=== PATIENT | female | born 1955 | race Caucasian/White ===

== ENCOUNTER 2024-08-25 10:20 | Emergency (ER) | payer MEDICARE, MEDICAID, SELFPAY ==
[2024-08-25 10:25] VITALS: BP 147/80; PULSE 73; TEMP 37; O2SAT 95; BMI 27.1
--- NOTE | 2024-08-25 10:35 | ED.GENADUL1 ---
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 Yesterday as an outpatient at [facility] she had a new lead placed on her pacemaker. When she took off the bulky dressing today she noted some blood presents under the clear dressing. She has been off of her blood thinner for several days. She does not feel dizzy and does not have chest pain or shortness of breath. Related Data Home Medications ?Medication ?Instructions ?Recorded ?Confirmed amiodarone 200 mg tablet 200 mg PO DAILY 08/25/24 08/25/24 apixaban 5 mg tablet (Eliquis) 5 mg PO BID 08/25/24 08/25/24 diltiazem HCl 180 mg 180 mg PO DAILY 08/25/24 08/25/24 capsule,extended release 24 hr docusate sodium 100 mg capsule 100 mg PO BID 08/25/24 08/25/24 doxycycline monohydrate 100 mg 100 mg PO BID 08/25/24 08/25/24 capsule lisinopril 10 mg tablet 10 mg PO DAILY 08/25/24 08/25/24 metformin 850 mg tablet 850 mg PO BID 08/25/24 08/25/24 montelukast 10 mg tablet 10 mg PO DAILY 08/25/24 08/25/24 nitroglycerin 0.4 mg sublingual 0.4 mg sublingual Q5M PRN chest 08/25/24 08/25/24 tablet pain omeprazole 40 mg capsule,delayed 40 mg PO DAILY 08/25/24 08/25/24 release polyethylene glycol 3350 17 gram 17 g PO DAILY 08/25/24 08/25/24 oral powder packet rosuvastatin 40 mg tablet 40 mg PO DAILY 08/25/24 08/25/24 Allergies Allergy/AdvReac Type Severity Reaction Status Date / Time Penicillins Allergy Severe Anaphylaxis Verified 08/25/24 10:25 codeine AdvReac Intermediate Nausea Verified 08/25/24 10:25 Opioid HPI Opioid Management Most Recent Opioid Data: No Data to Display Review of Systems ROS Narrative A ten point review of systems is negative except as noted above. PFSH PFSH Social History Little interest or pleasure in doing things: not at all Feeling down, depressed, or hopeless: not at all Exam Narrative Exam Narrative: Nurses note and vital signs reviewed and patient is not hypoxic. General: The patient appears well and in no apparent distress. Patient is resting comfortably on cart. Skin: Warm, dry, no pallor noted. There is no rash noted. Head: Normocephalic, atraumatic Eye: Normal conjunctiva, no drainage Ears, Nose, Mouth, and Throat: oral mucosa is moist. Nares patent. Cardiovascular: Regular Rate and Rhythm; clear dressing is present on the right chest wall and there is some blood underneath. There is no active bleeding. Respiratory: Patient is in no distress, no accessory muscle use, lungs are clear to auscultation, no wheezing, rales or rhonchi Back: non-tender GI: Soft and nontender Musculoskeletal: The patient has no evidence of calf tenderness, no pitting edema, symmetrical pulses noted bilaterally Neurological: A&O, normal speech Psychiatric: Cooperative Constitutional Vital Signs, click to edit/add: Last Vital Signs Temp 98.6 F 08/25/24 10:25 Pulse 73 08/25/24 10:25 Resp 16 08/25/24 10:25 BP 147/80 H 08/25/24 10:25 Pulse Ox 95 08/25/24 10:25 O2 Del Method Room Air 08/25/24 10:25 Course Vital Signs Vital signs: Vital Signs Temperature 98.6 F 08/25/24 10:25 Pulse Rate 73 08/25/24 10:25 Respiratory Rate 16 08/25/24 10:25 Blood Pressure 147/80 H 08/25/24 10:25 Pulse Oximetry 95 08/25/24 10:25 Oxygen Delivery Method Room Air 08/25/24 10:25 Temperature 98.6 F 08/25/24 10:25 Pulse Rate 73 08/25/24 10:25 Respiratory Rate 16 08/25/24 10:25 Blood Pressure 147/80 H 08/25/24 10:25 Pulse Oximetry 95 08/25/24 10:25 Oxygen Delivery Method Room Air 08/25/24 10:25 Medical Decision Making MDM Narrative Medical decision making narrative: Her workup is negative. Case discussed with Dr. Carlos and the patient is being released home. She was instructed to leave the dressing on in place until she sees him. Treatment diagnosis and follow-up were discussed with the patient and her family Differential Diagnosis Differential Diagnosis: Postoperative bleeding Lab Data Lab results reviewed: Yes I reviewed the patient's lab results Labs: Lab Results 08/25/24 Range/Units 10:47 WBC 9.7 (4.0-11.0) 10^3/uL RBC 4.68 (4.20-5.40) 10^6/uL Hgb 13.8 (12.0-16.0) g/dL Hct 42.7 (36.0-48.0) % MCV 91.2 (81.0-99.0) fL MCH 29.5 (26.7-34.0) pg MCHC 32.3 (29.9-35.2) g/dL RDW 15.5 H (11.0-15.0) % Plt Count 193 (150-450) 10^3/uL MPV 10.6 (9.5-13.5) fL Neut % (Auto) 78.3 H (43.0-75.0) % Lymph % (Auto) 14.7 L (20.5-60.0) % [place] % (Auto) 5.4 (1.7-12.0) % Eos % (Auto) 0.8 L (0.9-7.0) % Baso % (Auto) 0.5 (0.2-2.0) % Neut # (Auto) 7.6 H (1.4-6.5) 10^3/uL Lymph # (Auto) 1.4 (1.2-3.8) 10^3/uL [place] # (Auto) 0.5 (0.3-0.8) 10^3/uL Eos # (Auto) 0.1 (0.0-0.7) 10^3/uL Baso # (Auto) 0.1 (0.0-0.1) 10^3/uL Abs Immat Gran (auto) 0.03 (0.00-0.03) 10^3/uL Imm/Tot Granulo (auto) 0.3 (0.0-0.5) % Sodium 138 (136-145) mmol/L Potassium 4.0 (3.5-5.1) mmol/L Chloride 105 (98-107) mmol/L Carbon Dioxide 27.0 (21.0-32.0) mmol/L Anion Gap 10.0 BUN 15.0 (7.0-18.0) mg/dL Creatinine 0.94 (0.55-1.02) mg/dL Est GFR ( Amer) >60 (>=60 mL/min/1.73m^2) Est GFR (Non-Af Amer) 59 L (>=60 mL/min/1.73m^2) BUN/Creatinine Ratio 16.0 Glucose 180 H (74-106) mg/dL Calcium 8.6 (8.5-10.1) mg/dL Imaging Data Chest x-ray: Radiologist's impression: ITS Impressions Chest X-Ray 08/25/24 10:40 IMPRESSION: No acute cardiopulmonary process Electronically authenticated by: FLORENCE RUIZ Date: 08/25/2024 11:05 Discharge Plan Discharge Chief Complaint: Wound/Laceration Clinical Impression: Encounter for post surgical wound check Patient Disposition: Home, Self-Care Time of Disposition Decision: 11:30 Condition: Good Mode of Transportation: Private Vehicle Prescriptions / Home Meds: No Action amiodarone 200 mg tablet 200 mg PO DAILY Eliquis 5 mg tablet 5 mg PO BID Patient Comments: ON HOLD Aug diltiazem HCl 180 mg capsule,extended release 24hr 180 mg PO DAILY docusate sodium 100 mg capsule 100 mg PO BID doxycycline monohydrate 100 mg capsule 100 mg PO BID lisinopril 10 mg tablet 10 mg PO DAILY metformin 850 mg tablet 850 mg PO BID montelukast 10 mg tablet 10 mg PO DAILY nitroglycerin 0.4 mg tablet, sublingual 0.4 mg sublingual Q5M PRN (Reason: chest pain) omeprazole 40 mg capsule,delayed release(DR/EC) 40 mg PO DAILY polyethylene glycol 3350 17 gram powder in packet 17 g PO DAILY rosuvastatin 40 mg tablet 40 mg PO DAILY Print Language: Setswana Instructions: Postoperative Bleeding (ED) Additional Instructions: Leave dressing on in place. Do not poke any holes in it. Referrals: Sary Dela Cruz DO [Primary Care Provider] - 1 week
--- NOTE | 2024-08-25 10:40 | XR_ITS ---
The [address] [address] Patient Name: PATY LEONARD MRN: [id number] date: 1955 Sex: F Assigned Patient Location: ER Current Patient Location: ER Accession/Order Number: [id number] Exam Date: 08/25/2024 10:45 Report Date: 08/25/2024 11:05 At the request of: TAD FRANZ Procedure: XR chest 1V EXAMINATION: XR chest 1V HISTORY: Bleeding post pacemaker lead replacement COMPARISON: 05/09/2022 TECHNIQUE: Frontal FINDINGS: LUNGS: No significant pulmonary parenchymal abnormalities. VASCULATURE: No increased pulmonary vasculature. PLEURA: No pneumothorax, effusion, or pleural thickening. CARDIAC: No cardiomegaly or cardiac silhouette abnormality. MEDIASTINUM: No visible mass or adenopathy. Right multilead pacemaker BONES: No fracture or visible bone lesion. OTHER: Negative. XR/XR chest 1V IMPRESSION: No acute cardiopulmonary process Electronically authenticated by: FLORENCE RUIZ Date: 08/25/2024 11:05
[2024-08-25 10:54] LABS: Basophils Absolute Auto 0.1 10^3/uL (0.0-0.1); Basophils Percent Auto 0.5 % (0.2-2.0); Eosinophils Absolute Auto 0.1 10^3/uL (0.0-0.7); Eosinophils Percent Auto 0.8 % (0.9-7.0); Hematocrit 42.7 % (36.0-48.0); Hemoglobin 13.8 g/dL (12.0-16.0); Immature Granulocytes Abs Auto 0.03 10^3/uL (0.00-0.03); Immature Granulocytes Pct Auto 0.3 % (0.0-0.5); Lymphocytes Absolute Auto 1.4 10^3/uL (1.2-3.8); Lymphocytes Percent Auto 14.7 % (20.5-60.0); Mean Corpuscular HGB Conc 32.3 g/dL (29.9-35.2); Mean Corpuscular Hemoglobin 29.5 pg (26.7-34.0); Mean Corpuscular Volume 91.2 fL (81.0-99.0); Mean Platelet Volume 10.6 fL (9.5-13.5); Monocytes Absolute Auto 0.5 10^3/uL (0.3-0.8); Monocytes Percent Auto 5.4 % (1.7-12.0); Neutrophils Absolute Auto 7.6 10^3/uL (1.4-6.5); Neutrophils Percent Auto 78.3 % (43.0-75.0); Platelet Count 193 10^3/uL (150-450); Red Blood Count 4.68 10^6/uL (4.20-5.40); Red Cell Distribution Width 15.5 % (11.0-15.0); White Blood Count 9.7 10^3/uL (4.0-11.0)
[2024-08-25 11:05] LABS: Calcium 8.6 mg/dL (8.5-10.1); Chloride 105 mmol/L (98-107); Estimated GFR (African America >60 (>=60 mL/min/1.73m^2); Estimated GFR (Non-African Ame 59 (>=60 mL/min/1.73m^2); Glucose 180 mg/dL (74-106); Sodium 138 mmol/L (136-145)
== END 2024-08-25 11:34 | disposition home or self-care (01) ==
PROVIDERS: Emergency Provider Emergency Medicine
DX: Z48.01 Encounter for change or removal of surgical wound dressing (principal); Z95.0 Presence of cardiac pacemaker
CPT/HCPCS: 36415; 71045; 80048; 85025; 99284